=== PATIENT | female | born 1990 | race Caucasian/White ===

== ENCOUNTER 2017-10-12 09:39 | Emergency (ER) | payer OTHER ==
[2017-10-12 09:52] VITALS: BMI 23.8
--- NOTE | 2017-10-12 10:09 | PDOC ---
History of Present Illness - General History Source: Patient Exam Limitations: No Limitations - History of Present Illness Initial Comments: 10/12/17 12:49 The patient is a 26-year-old female, with no significant past medical history, who presents to the ED with vaginal bleeding that began this morning. The patient states that her last menstrual period lasted from 10/04/17- 10/08/17. On the patient developed lower back cramping and vaginal discharge. She became concerned after noting blood when wiping this morning since her period had already passed. On exam, she reports that she is nauseous. The patient denies any fever, chills, vomiting, or abdominal pain. She denies any history of cysts or fibroids. Allergies: NKDA Surgical Hx: No surgeries reported Social Hx: She denies any tobacco use or drug use. PERSONNEL CONSULTANT: Dr. De La Rosa <Carmen Medley - Last Filed: 10/12/17 12:49> <Kenyatta Blandon - Last Filed: 10/12/17 13:54> - General Chief Complaint: Vaginal Bleeding Stated Complaint: BLEEDING Time Seen by Provider: 10/12/17 10:09 Past History <Carmen Medley - Last Filed: 10/12/17 12:49> - Past Medical History Asthma: No Cancer: No Cardiac Disorders: No Diabetes: No HTN: No Seizures: No Thyroid Disease: No - Family Disease History Family Disease History: Diabetes: Father - Reproductive History (#): 1 Para: 0 - Immunization History Td Vaccination: Yes Immunization Up to Date: Yes - Suicide/Smoking/Psychosocial Hx Smoking Status: No Smoking History: Never smoked Years of Tobacco Use: 0 Number of Cigarettes Smoked Daily: 0 Cigars Per Day: 0 Hx Alcohol Use: No Drug/Substance Use Hx: No Substance Use Type: None Hx Substance Use Treatment: No <Kenyatta Blandon - Last Filed: 10/12/17 13:54> - Past Medical History Allergies/Adverse Reactions: Allergies Allergy/AdvReac Type Severity Reaction Status Date / Time No Known Allergies Allergy Verified 10/12/17 09:49 Home Medications: Ambulatory Orders NK [No Known Home Medication] 12/01/14 Review of Systems - Review of Systems Able to Perform ROS?: Yes Comments:: 10/12/17 12:49 GENERAL/CONSTITUTIONAL: No: fever, chills, weakness, loss of appetite. HEAD, EYES, EARS, NOSE AND THROAT: No: change in vision, ear pain, discharge, sore throat, throat swelling. CARDIOVASCULAR: No: chest pain, lightheadedness, palpitations, syncope RESPIRATORY: No: cough, shortness of breath, wheezing, hemoptysis, stridor. GASTROINTESTINAL: Yes: Nausea. No: vomiting, abdominal cramping, diarrhea, rectal bleeding, constipation. GENITOURINARY: Yes: vaginal bleeding, vaginal discharge. No: dysuria, hematuria , frequency, urgency, flank pain. MUSCULOSKELETAL: Yes: Lower back pain. No: neck pain, joint pain. SKIN AND BREASTS: No: lesions, pallor, rash or easy bruising. NEUROLOGIC: No: headache, vertigo, paresthesias, weakness ENDOCRINE: No: unexplained weight gain or loss HEMATOLOGIC/LYMPHATIC: No: anemia, easy bleeding, swelling nodes <Carmen Medley - Last Filed: 10/12/17 12:49> *Physical Exam - Vital Signs Last Vital Signs Temp Pulse Resp BP Pulse Ox 98.1 F 105 H 19 113/65 100 10/12/17 09:49 10/12/17 09:49 10/12/17 09:49 10/12/17 09:49 10/12/17 09:49 - Physical Exam Comments: 10/12/17 12:58 GENERAL: The patient is in no acute distress. HEAD: Normal with no signs of trauma. EYES: PERRLA, EOMI, sclera anicteric, conjunctiva clear. ENT: Ears normal, nares patent, oropharynx clear without exudates. Moist mucous membranes. NECK: Normal range of motion, supple without lymphadenopathy, JVD, or masses. LUNGS: Breath sounds equal, clear to auscultation bilaterally. No wheezes, and no crackles. HEART:Regular rate and rhythm, normal S1 and S2 without murmur, rub or gallop. ABDOMEN: (+)Minimal lower abdominal tenderness. Soft, normoactive bowel sounds. No guarding, no rebound. EXTREMITIES: Normal range of motion, no edema. No clubbing or cyanosis. No erythema, or tenderness. NEUROLOGICAL: Cranial nerves II through XII grossly intact. Normal speech. No focal neurological deficits. MUSCULOSKELETAL: Back non-tender to palpation, no CVA tenderness SKIN: Warm, Dry, normal turgor, no rashes or lesions noted. Pelvic Exam: No blood in vault No cervical masses or tenderness Physiological discharge noted <Carmen Medley - Last Filed: 10/12/17 12:49> - Vital Signs Last Vital Signs Temp Pulse Resp BP Pulse Ox 98.1 F 105 H 19 113/65 100 10/12/17 09:49 10/12/17 09:49 10/12/17 09:49 10/12/17 09:49 10/12/17 09:49 <Kenyatta Blandon - Last Filed: 10/12/17 13:54> ED Treatment Course - LABORATORY CBC & Chemistry Diagram: 10/12/17 11:10 10/12/17 11:10 - ADDITIONAL ORDERS Additional order review: Laboratory Results 10/12/17 11:10 Blood Type O NEGATIVE Antibody Screen Negative 10/12/17 11:10 RBC 4.85 MCV 86.5 MCHC 33.0 RDW 13.8 D MPV 7.2 L Neutrophils % 68.1 Lymphocytes % 21.2 Monocytes % 9.8 Eosinophils % 0.6 Basophils % 0.3 <Carmen Medley - Last Filed: 10/12/17 12:49> - LABORATORY CBC & Chemistry Diagram: 10/12/17 11:10 10/12/17 11:10 <Kenyatta Blandon - Last Filed: 10/12/17 13:54> Medical Decision Making - Medical Decision Making 10/12/17 12:14 Mr. Guan is a 26 yo female presenting to the emergency department with a complaint of spotting, lower abdominal pain. Patient states her last menstrual period was between October 04 and October 08. Beginning on October 09 she noted spotting, and lower abdominal pain. No fevers, chills. Patient has saturated. No abnormal discharge. On examination: Patient has mild lower abdominal tenderness to palpation No voluntary guarding, no rebound Normal external genitalia No bleeding noted, physiologic discharge noted, No CMT Will do labs Will do US Will re assess 10/12/17 12:19 Laboratory Tests 10/12/17 11:10 WBC 4.8 D Hgb 13.8 D Hct 42.0 Plt Count 231 Neutrophils % 68.1 Lymphocytes % 21.2 10/12/17 13:45 Laboratory Tests 10/12/17 11:10 BUN 10 Creatinine 0.6 Beta HCG, Quant < 1.0 10/12/17 13:46 Retroverted normal-appearing uterus, normal thickness of the endometrial stripe. Left ovary not visualized. Normal appearing right ovary with multiple small simple cyst/follicles present. Charge home. Clinical impression: Dysfunctional uterine bleeding, initial presentation Vital cramping, initial presentation <Kenyatta Blandon - Last Filed: 10/12/17 13:54> *DC/Admit/Observation/Transfer - Attestations Scribe Attestion: 10/12/17 13:03 Documentation prepared by Carmen Medley, acting as medical record assistant for Kenyatta Blandon MD. 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
[2017-10-12 11:24] LABS: BASO % 0.3 % (0-2.0); EOS % 0.6 % (0-4.5); HEMOGLOBIN 13.8 GM/dL (10.7-15.3); LYMPH % 21.2 % (8-40); MCH 28.5 pg (25.7-33.7); MEAN CELL VOLUME 86.5 fl (80-96); MEAN PLT VOLUME 7.2 fl (7.5-11.1); MONO % 9.8 % (3.8-10.2); NEUT % 68.1 % (42.8-82.8); PLATELET COUNT 231 K/MM3 (134-434); RBC 4.85 M/mm3 (3.60-5.2); RDW 13.8 % (11.6-15.6); WHITE BLOOD COUNT 4.8 K/mm3 (4.0-10.0)
[2017-10-12 13:16] LABS: ANION GAP 8 (8-16); BLOOD UREA NITROGEN 10 mg/dL (7-18); CALCIUM 9.2 mg/dL (8.5-10.1); CHLORIDE 103 mmol/L (98-107); CO2 30 mmol/L (21-32); GLUCOSE,RANDOM 90 mg/dL (74-106); POTASSIUM 3.7 mmol/L (3.5-5.1); SGPT/ALT 33 U/L (12-78); SODIUM 141 mmol/L (136-145)
[2017-10-12 13:18] LABS: BILIRUBIN,TOTAL 0.3 mg/dL (0.2-1.0); CREATININE 0.6 mg/dL (0.55-1.02); SGOT/AST 15 U/L (15-37); TOT PROT 7.5 g/dl (6.4-8.2)
[2017-10-12 13:22] LABS: ALK PHOS 76 U/L (45-117)
[2017-10-12 14:14] LABS: URINE APPEARANCE CLEAR; URINE BILIRUBIN NEGATIVE (NEGATIVE); URINE BLOOD NEGATIVE (NEGATIVE); URINE COLOR LTYELLOW; URINE GLUCOSE (UA) NEGATIVE (NEGATIVE); URINE KETONE NEGATIVE (NEGATIVE); URINE LEUK ESTERASE NEGATIVE (NEGATIVE); URINE NITRITE NEGATIVE (NEGATIVE); URINE PROTEIN NEGATIVE (NEGATIVE); URINE UROBILINOGEN NEGATIVE mg/dL (0.2-1.0)
[2017-10-12 14:23] VITALS: BP 128/75; PULSE 76; TEMP 97.9
== END 2017-10-12 14:23 | disposition home or self-care (01) ==
LOC: JER 09:39
DX: N93.8 Other specified abnormal uterine and vaginal bleeding (principal); R10.2 Pelvic and perineal pain
CPT/HCPCS: 36415; 76830-TC; 80053; 81003; 84702; 85025; 86850; 86900; 86901; 87070; 87086; 87205; 87491; 87591; 99282-25

== ENCOUNTER 2018-06-04 17:17 | Emergency (ER) | payer OTHER ==
[2018-06-04 17:22] VITALS: BP 100/76; PULSE 99; TEMP 98.6; BMI 26.5
[2018-06-04 18:08] LABS: URINE APPEARANCE CLEAR; URINE BILIRUBIN NEGATIVE (<2.0 mg/dL); URINE COLOR YELLOW; URINE GLUCOSE (UA) NEGATIVE (NEGATIVE); URINE KETONE NEGATIVE (NEGATIVE); URINE LEUK ESTERASE 3+ (NEGATIVE); URINE NITRITE NEGATIVE (NEGATIVE); URINE PROTEIN NEGATIVE (NEGATIVE); URINE UROBILINOGEN NEGATIVE mg/dL (0.2-1.0)
[2018-06-04 18:10] LABS: EPI CELLS RARE /HPF (FEW); URINE BACTERIA RARE /hpf (NONE SEEN); URINE MUCUS FEW
--- NOTE | 2018-06-04 19:08 | PDOC ---
History of Present Illness - General Chief Complaint: Vaginal Sxs Stated Complaint: UTI Time Seen by Provider: 06/04/18 18:11 History Source: Patient Exam Limitations: No Limitations - History of Present Illness Initial Comments: 06/04/18 20:[age] yo F w/ a h/o BV comes in c/o 2-3 weeks of profuse grayish- yellowish foul smelling vaginal discharge. She says that it smells like when she had BV. Denies being sexually active, last sexual encounter was in February. Denies suspicion for STD. Also denies burning/pain on urination, no frequency/ urgency/poor stream. (+)occasional abdominal cramping, no back pain, no fever/ chills, no nVD, no change in appetite, no decrease in urination. Past History - Past Medical History Allergies/Adverse Reactions: Allergies Allergy/AdvReac Type Severity Reaction Status Date / Time No Known Allergies Allergy Verified 06/04/18 17:19 Home Medications: Ambulatory Orders metroNIDAZOLE [Flagyl -] 500 mg PO BID 7 Days #14 tablet 06/04/18 Asthma: No Cancer: No Cardiac Disorders: No COPD: No Diabetes: No HTN: No Seizures: No Thyroid Disease: No - Family Disease History Family Disease History: Diabetes: Father - Reproductive History (#): 1 Para: 0 - Immunization History Td Vaccination: Yes Immunization Up to Date: Yes - Suicide/Smoking/Psychosocial Hx Smoking Status: No Smoking History: Never smoked Years of Tobacco Use: 0 Number of Cigarettes Smoked Daily: 0 Cigars Per Day: 0 Information on smoking cessation initiated: No Hx Alcohol Use: No Drug/Substance Use Hx: No Substance Use Type: None Hx Substance Use Treatment: No Review of Systems - Review of Systems Able to Perform ROS?: Yes Constitutional: No: Chills, Fever, Malaise, Night Sweats HEENTM: No: Eye Pain, Recent change in vision, Throat Pain Respiratory: No: Cough, Shortness of Breath Cardiac (ROS): No: Chest Pain, Palpitations, Chest Tightness ABD/GI: Yes: Abdominal cramping. No: Diarrhea, Nausea, Vomiting : Yes: Discharge. No: Burning, Dysuria, Hematuria Musculoskeletal: No: Back Pain Integumentary: No: Rash Neurological: No: Headache, Numbness, Dizziness Psychiatric: No: Change in Appetite Endocrine: No: Unexplained Weight Loss *Physical Exam - Vital Signs Last Vital Signs Temp Pulse Resp BP Pulse Ox 98.6 F 99 H 18 100/76 100 06/04/18 17:20 06/04/18 17:20 06/04/18 17:20 06/04/18 17:20 06/04/18 17:20 - Physical Exam General Appearance: Yes: Nourished. No: Apparent Distress HEENT: positive: NE, Normal Voice. negative: Pale Conjunctivae, Scleral Icterus (R), Scleral Icterus (L) Neck: positive: Supple, Tender midline. negative: Decreased range of motion Respiratory/Chest: positive: Lungs Clear, Normal Breath Sounds. negative: Respiratory Distress, Accessory Muscle Use Cardiovascular: positive: Regular Rhythm, Regular Rate Female Pelvic Exam: positive: normal external exam, cervical os closed, normal adnexa, normal size ovaries, discharge (copious grayish-yellowish discharge without CMT, no strawberry cervix, no adnexal tenderness/masses). negative: CMT Gastrointestinal/Abdominal: positive: Normal Bowel Sounds, Soft. negative: Tender Musculoskeletal: positive: Normal Inspection. negative: CVA Tenderness, Decreased Range of Motion Extremity: positive: Normal Capillary Refill, Normal Inspection, Normal Range of Motion. negative: Tender, Pedal Edema Integumentary: positive: Normal Color, Dry. negative: Jaundice, Rash Neurologic: positive: Fully Oriented, Alert, Normal Mood/Affect ED Treatment Course - ADDITIONAL ORDERS Additional order review: Laboratory Results 06/04/18 06/04/18 18:00 18:00 Urine Color Yellow Urine Appearance Clear Urine pH 6.0 Ur Specific [place] 1.026 Urine Protein Negative Urine Glucose (UA) Negative Urine Ketones Negative Urine Blood Negative Urine Nitrite Negative Urine Bilirubin Negative Urine Urobilinogen Negative Ur Leukocyte Esterase 3+ H Urine WBC (Auto) 2 Urine RBC (Auto) 2 Ur Epithelial Cells Rare Urine Bacteria Rare Urine Mucus Few Urine HCG, Qual Negative Medical Decision Making - Medical Decision Making 06/04/18 20:11 27 yo F w/ vaginal discharge, coulf be BV. I offered empiric treatment for STDs due to nature of discharge. Pt declines. WIll send STD testing. Urine with Leuks. WIll not treat because pt guaman snot have any urinary symptoms. Abdomen soft. NT. Will discharge with Flagyl and will have test results followed up OBGYN follow up Return for worsening/concerning symptoms *DC/Admit/Observation/Transfer Diagnosis at time of Disposition: Vaginal discharge - Discharge Dispostion Disposition: HOME Condition at time of disposition: Stable Decision to Admit order: No - Prescriptions Prescriptions: metroNIDAZOLE [Flagyl -] 500 mg PO BID 7 Days #14 tablet - Referrals Referrals: Mukesh López [Primary Care Provider] - - Patient Instructions - Post Discharge Activity
== END 2018-06-04 19:32 | disposition home or self-care (01) ==
LOC: JERFT 17:17
DX: N89.8 Other specified noninflammatory disorders of vagina (principal)
CPT/HCPCS: 36415; 81003; 81015; 84703; 87070; 87077; 87086; 87205; 87491; 87591; 87661; 99281-25

== ENCOUNTER 2018-06-20 21:12 | Emergency (ER) | payer OTHER ==
[2018-06-20 21:17] VITALS: BP 116/75; PULSE 88; TEMP 98.7; BMI 26.3
--- NOTE | 2018-06-20 21:36 | PDOC ---
History of Present Illness - General Chief Complaint: Ear Problem Stated Complaint: EAR PROBLEM Time Seen by Provider: 06/20/18 21:30 - History of Present Illness Initial Comments: 06/20/18 21:33 27-year-old female with for years of right ear congestion comes to ER for further evaluation and treatment. She has no associated symptoms. Past History - Past Medical History Allergies/Adverse Reactions: Allergies Allergy/AdvReac Type Severity Reaction Status Date / Time No Known Allergies Allergy Verified 06/20/18 21:18 Home Medications: Ambulatory Orders Cetirizine HCl/Pseudoephedrine [Zyrtec-D Tablet] 1 each PO DAILY #30 tab.er.12h 06/20/18 Asthma: No Cancer: No Cardiac Disorders: No COPD: No Diabetes: No HTN: No Seizures: No Thyroid Disease: No - Family Disease History Family Disease History: Diabetes: Father - Reproductive History (#): 1 Para: 0 - Immunization History Td Vaccination: Yes Immunization Up to Date: Yes - Suicide/Smoking/Psychosocial Hx Smoking Status: No Smoking History: Never smoked Years of Tobacco Use: 0 Number of Cigarettes Smoked Daily: 0 Cigars Per Day: 0 Hx Alcohol Use: No Drug/Substance Use Hx: No Substance Use Type: None Hx Substance Use Treatment: No Review of Systems - Review of Systems HEENTM: Yes: See HPI *Physical Exam - Vital Signs Last Vital Signs Temp Pulse Resp BP Pulse Ox 98.7 F 88 18 116/75 100 06/20/18 21:13 06/20/18 21:13 06/20/18 21:13 06/20/18 21:13 06/20/18 21:13 - Physical Exam Comments: 06/20/18 21:34 HEAD: NC/AT EYES: Conjuntiva clear Ears: Canals and TM's normal NOSE: No d/c THROAT: Moist mucous membrances, oral pharanx clear, uvula midline NECK: Supple without adenopathy CARDIAC: S1 S2 LUNGS: CTA Full and Equal breath sounds ABDOMEN: Soft NT ND MS: Full ROM in all joints without edema NEUROLOGIC: No gross sensory or motor deficits, NVID SKIN: Normal color and temperature no lesions or rashes Medical Decision Making - Medical Decision Making 06/20/18 21:34 Benign examination in this healthy 27-year-old I will give her an antihistamine with decongestant. She states there is no chance of her being she will follow-up with ENT. *DC/Admit/Observation/Transfer Diagnosis at time of Disposition: Ear pain, right - Discharge Dispostion Disposition: HOME Condition at time of disposition: Stable Decision to Admit order: No - Referrals Referrals: Mukesh López [Primary Care Provider] - Fredrick Hoffman MD [Staff Physician] - - Patient Instructions Additional Instructions: Please take the medication as directed. Return to the emergency room should symptoms worsen or go unresolved and follow-up with ENT doctor in one to 2 days for further evaluation and treatment options. - Post Discharge Activity
== END 2018-06-20 21:37 | disposition home or self-care (01) ==
LOC: JERFT 21:12
DX: H92.01 Otalgia, right ear (principal)
CPT/HCPCS: 99281-25

== ENCOUNTER 2018-07-11 15:42 | Emergency (ER) | payer OTHER ==
[2018-07-11 15:59] VITALS: BP 109/69; PULSE 86; TEMP 98.4; BMI 26.7
--- NOTE | 2018-07-11 15:59 | PDOC ---
Rapid Medical Evaluation Chief Complaint: Pain, Acute Time Seen by Provider: 07/11/18 15:54 Medical Evaluation: Allergies Allergy/AdvReac Type Severity Reaction Status Date / Time No Known Allergies Allergy Verified 06/20/18 21:18 07/11/18 15:55 27 year old female with pelvic pain b/l since this afternoon/ no period x 4 months. patient has irregular menstrual perios. denies STD exposure/ new partner./ patient reports clear white vaginal discharge. PE'; patient alert ox3. A: pelvic pain P: UA, UCX, urine Discharge Disposition - Diagnosis Pelvic pain - Referrals - Patient Instructions - Post Discharge Activity
--- NOTE | 2018-07-11 16:42 | PDOC ---
History of Present Illness - General Chief Complaint: Pain, Acute Stated Complaint: PAIN Time Seen by Provider: 07/11/18 15:54 History Source: Patient Exam Limitations: Clinical Condition - History of Present Illness Initial Comments: 07/11/18 16:37 Patient with no significant past medication present with complaint of 4 day history of smelly vaginal discharge. Patient also reports cramping lower pelvic pain which she thinks could be due to her menstrual period which just started an hour ago. Patient also reported urinary frequency, dysuria and urgency. Patient denies fever, chills, back pains, nausea or vomiting. Patient denies any other symptoms Timing/Duration: other (4 days) Past History - Past Medical History Allergies/Adverse Reactions: Allergies Allergy/AdvReac Type Severity Reaction Status Date / Time No Known Allergies Allergy Verified 07/11/18 15:56 Home Medications: Ambulatory Orders Ciprofloxacin HCl [Cipro] 500 mg PO BID 5 Days #10 tablet 07/11/18 Fluconazole [Diflucan] 150 mg PO ONCE #1 tablet 07/11/18 metroNIDAZOLE [Flagyl -] 500 mg PO DAILY #14 tablet 07/11/18 Asthma: No Cancer: No Cardiac Disorders: No COPD: No Diabetes: No HTN: No Seizures: No Thyroid Disease: No - Family Disease History Family Disease History: Diabetes: Father - Reproductive History (#): 1 Para: 0 - Immunization History Td Vaccination: Yes Immunization Up to Date: Yes - Suicide/Smoking/Psychosocial Hx Smoking Status: No Smoking History: Never smoked Years of Tobacco Use: 0 Number of Cigarettes Smoked Daily: 0 Cigars Per Day: 0 Hx Alcohol Use: No Drug/Substance Use Hx: No Substance Use Type: None Hx Substance Use Treatment: No Review of Systems - Review of Systems Able to Perform ROS?: Yes Is the patient limited Swedish proficient: No Constitutional: No: Chills, Fever Respiratory: No: Symptoms reported Cardiac (ROS): No: Symptoms Reported ABD/GI: Yes: Symptoms Reported, See HPI, Abdominal cramping (cramping lower abdominal). No: Abdominal Distended, Abd. Pain w/ defecation, Blood Streaked Bowels, Constipated, Diarrhea, Difficulty Swallowing, Nausea, Poor Appetite, Poor Fluid Intake, Rectal Bleeding, Vomiting, Indigestion, Tarry Stools, Other : Yes: Dysuria, Discharge, Frequency, Urgency. No: Burning, Flank Pain, Hematuria, Incontinence, Pain Musculoskeletal: No: Back Pain, Muscle Pain All Other Systems: Reviewed and Negative *Physical Exam - Vital Signs Last Vital Signs Temp Pulse Resp BP Pulse Ox 98.4 F 86 16 109/69 99 07/11/18 15:56 07/11/18 15:56 07/11/18 15:56 07/11/18 15:56 07/11/18 15:56 - Physical Exam Comments: 07/11/18 16:39 GENERAL: Well developed, well nourished. Awake and alert. No acute distress. CARDIOVASCULAR: Regular rate and rhythm. No murmurs, rubs, or gallops. Distal pulses are 2+ and symmetric. PULMONARY: No evidence of respiratory distress. Lungs clear to auscultation bilaterally. No wheezing, rales or rhonchi. ABDOMINAL: Soft. Non-tender. Non-distended. No rebound or guarding. No organomegaly. Normoactive bowel sounds. MUSCULOSKELETAL Normal range of motion at all joints. No bony deformities or tenderness. No CVA tenderness. : Declined due to mestrual period SKIN: Warm and dry. Normal capillary refill. No rashes. No jaundice. NEUROLOGICAL: Alert, awake, appropriate. PSYCHIATRIC: Cooperative. Good eye contact. Appropriate mood and affect. General Appearance: Yes: Nourished, Appropriately Dressed. No: Apparent Distress Medical Decision Making - Medical Decision Making 07/11/18 16:40 Patient with no significant past medication present with complaint of 4 days history of vaginal discharge, urinary frequency and dysuria. Patient declined vaginal exam Jicha menstrual period just started. UA and urine culture sent. Urine GC/ chlamydia labs sent. Patient will be treated empirically for bacterial vaginosis, vaginal yeast infection and UTI pending labs. Plan discussed with patient and patient agreed was plan. Patient is stable for discharge with DESIGN CONSULTANT follow-up *DC/Admit/Observation/Transfer Diagnosis at time of Disposition: Pelvic pain, Dysuria Vaginitis Qualifiers: Chronicity: acute Qualified Code(s): N76.0 - Acute vaginitis - Discharge Dispostion Disposition: HOME Condition at time of disposition: Stable Decision to Admit order: No - Prescriptions Prescriptions: Ciprofloxacin HCl [Cipro] 500 mg PO BID 5 Days #10 tablet Fluconazole [Diflucan] 150 mg PO ONCE #1 tablet metroNIDAZOLE [Flagyl -] 500 mg PO DAILY #14 tablet - Referrals Referrals: Mukesh López [Primary Care Provider] - - Patient Instructions Additional Instructions: Take medications as prescribed. Take Diflucan antifungal by mouth after cipro and flagyl antibiotics treatment. you will be contacted with urine culture results. - Post Discharge Activity
[2018-07-11 16:46] LABS: HCG,QUALITATIVE URINE Negative
[2018-07-11 16:58] LABS: URINE APPEARANCE SLCLOUDY; URINE BILIRUBIN NEGATIVE (<2.0 mg/dL); URINE COLOR YELLOW; URINE GLUCOSE (UA) NEGATIVE (NEGATIVE); URINE KETONE NEGATIVE (NEGATIVE); URINE LEUK ESTERASE 3+ (NEGATIVE); URINE NITRITE NEGATIVE (NEGATIVE); URINE PROTEIN NEGATIVE (NEGATIVE); URINE UROBILINOGEN NEGATIVE mg/dL (0.2-1.0)
[2018-07-11 17:10] LABS: EPI CELLS MODERATE /HPF (FEW); URINE BACTERIA RARE /hpf (NONE SEEN); URINE MUCUS RARE
== END 2018-07-11 16:49 | disposition home or self-care (01) ==
LOC: JERFT 15:42
DX: N76.0 Acute vaginitis (principal); B96.89 Other specified bacterial agents as the cause of diseases classified elsewhere; B37.3 Candidiasis of vulva and vagina
CPT/HCPCS: 36415; 81003; 81015; 84703; 87077; 87086; 87491; 87591; 99281-25

== ENCOUNTER 2018-08-26 00:20 | Emergency (ER) | payer OTHER ==
[2018-08-26 02:10] VITALS: BP 113/70; PULSE 78; TEMP 97.9; BMI 27.2
--- NOTE | 2018-08-26 02:26 | PDOC ---
Attending Attestation - Resident Resident Name: Ghassan Dowling - ED Attending Attestation I have performed the following: I have examined & evaluated the patient, The case was reviewed & discussed with the resident, I agree w/resident's findings & plan, Exceptions are as noted - HPI HPI: 08/26/18 05:55 27F no pmh here with episodic dizziness for the past several months. Episodes dependant on movement and position. Has been evaluated by ENT for this issue w/ o any worrisome finding per patient. - Physicial Exam PE: 08/26/18 05:56 Agree with exam as documented by resident - Medical Decision Making 08/26/18 05:57 Pt c/o dizziness, no features worrisome for central cause, inconsistent with pre -syncope, consider bppv trial meclizine f/u with pcp8
[2018-08-26] MEDS ORDERED: MECLIZINE HCL 25 MG TABLET (FP) PO ONE (02:28)
--- NOTE | 2018-08-26 02:34 | PDOC ---
History of Present Illness - General Chief Complaint: Shortness of Breath Stated Complaint: DIZZINESS SOB EAR PROBLEM Time Seen by Provider: 08/26/18 02:14 History Source: Patient Exam Limitations: No Limitations - History of Present Illness Initial Comments: 08/26/18 02:30 Patient is a 27F with no significant medical history complaining of dizziness for the past two days. Patient states that she has been having issues with dizziness for the past several months and was evaluated by an ENT doctor who told her she was fine. Patient states that she has an appointment scheduled for Wednesday. Patient states that her episodes of dizziness are severe and worsened when she moves. She states that she has a sensation of a "whoosh" in her right ear. She has also had tinnitus in the past. Denies fevers, chills, nausea, vomiting, ear pain. Patient states that she had an episode of shortness of breath earlier today, since resolved. Denies any focal neuro deficit such as arm /leg weakness and facial droop. Past History - Past Medical History Allergies/Adverse Reactions: Allergies Allergy/AdvReac Type Severity Reaction Status Date / Time No Known Allergies Allergy Verified 08/26/18 01:58 Home Medications: Ambulatory Orders Ciprofloxacin HCl [Cipro] 500 mg PO BID 5 Days #10 tablet 07/11/18 Fluconazole [Diflucan] 150 mg PO ONCE #1 tablet 07/11/18 metroNIDAZOLE [Flagyl -] 500 mg PO DAILY #14 tablet 07/11/18 Meclizine HCl [Antivert -] 25 mg PO TID #21 tablet 08/26/18 Asthma: No Cancer: No Cardiac Disorders: No COPD: No Diabetes: No HTN: No Seizures: No Thyroid Disease: No - Family Disease History Family Disease History: Diabetes: Father - Reproductive History (#): 1 Para: 0 - Immunization History Td Vaccination: Yes Immunization Up to Date: Yes - Suicide/Smoking/Psychosocial Hx Smoking Status: No Smoking History: Never smoked Years of Tobacco Use: 0 Have you smoked in the past 12 months: No Number of Cigarettes Smoked Daily: 0 Cigars Per Day: 0 Information on smoking cessation initiated: No Hx Alcohol Use: No Drug/Substance Use Hx: No Substance Use Type: None Hx Substance Use Treatment: No Review of Systems - Review of Systems Comments:: 08/26/18 02:33 GENERAL/CONSTITUTIONAL: No fever or chills. No weakness. HEAD, EYES, EARS, NOSE AND THROAT: No change in vision. No ear pain or discharge. No sore throat. CARDIOVASCULAR: No chest pain or shortness of breath RESPIRATORY: No cough, wheezing, or hemoptysis. GASTROINTESTINAL: No nausea, vomiting, diarrhea or constipation. GENITOURINARY: No dysuria, frequency, or change in urination. MUSCULOSKELETAL: No joint or muscle swelling or pain. No neck or back pain. SKIN: No rash NEUROLOGIC: No headache, +vertigo, no loss of consciousness, or change in strength/sensation. ENDOCRINE: No increased thirst. No abnormal weight change HEMATOLOGIC/LYMPHATIC: No anemia, easy bleeding, or history of blood clots. ALLERGIC/IMMUNOLOGIC: No hives or skin allergy. *Physical Exam - Vital Signs Last Vital Signs Temp Pulse Resp BP Pulse Ox 97.9 F 78 20 113/70 99 08/26/18 00:20 08/26/18 00:20 08/26/18 00:20 08/26/18 00:20 08/26/18 00:20 - Physical Exam Comments: 08/26/18 02:33 GENERAL: Awake, alert, and fully oriented, in no acute distress HEAD: No signs of trauma, normocephalic, atraumatic EYES: PERRLA, EOMI, sclera anicteric, conjunctiva clear ENT: Auricles normal inspection, hearing grossly normal, nares patent, oropharynx clear without exudates. Moist mucosa. Clear TMs. NECK: Normal ROM, supple, no lymphadenopathy, JVD, or masses LUNGS: No distress, speaks full sentences, clear to auscultation bilaterally HEART: Regular rate and rhythm, normal S1 and S2, no murmurs, rubs or gallops, peripheral pulses normal and equal bilaterally. ABDOMEN: Soft, nontender, normoactive bowel sounds. No guarding, no rebound. No masses EXTREMITIES: Normal inspection, Normal range of motion, no edema. No clubbing or cyanosis. NEUROLOGICAL: Cranial nerves II through XII grossly intact. Normal speech, normal gait, no focal sensorimotor deficits SKIN: Warm, Dry, normal turgor, no rashes or lesions noted. Moderate Sedation - Procedure Monitoring Vital Signs: Procedure Monitoring Vital Signs Temperature 97.9 F 08/26/18 00:20 Pulse Rate 78 08/26/18 00:20 Respiratory Rate 20 08/26/18 00:20 Blood Pressure 113/70 08/26/18 00:20 O2 Sat by Pulse Oximetry (%) 99 08/26/18 00:20 Medical Decision Making - Medical Decision Making 08/26/18 02:34 Patient is 27F here today with vertigo. No red flags for stroke, acs, arrhythmia , mass, dissection. Patient has appropriate ENT follow up. Will discharge with meclizine, believe BPPV is most likely diagnosis. *DC/Admit/Observation/Transfer Diagnosis at time of Disposition: Vertigo - Discharge Dispostion Disposition: HOME Condition at time of disposition: Good Decision to Admit order: No - Prescriptions Prescriptions: Meclizine HCl [Antivert -] 25 mg PO TID #21 tablet - Referrals Referrals: Mukesh López [Primary Care Provider] - - Patient Instructions Printed Discharge Instructions: DI for Vertigo Additional Instructions: Please follow up with your ENT doctor as scheduled on Wednesday. Please return if you have any new, worsening or concerning symptoms, especially fever, facial droop, or arm/leg weakness. - Post Discharge Activity
[2018-08-26] MEDS ORDERED: MECLIZINE HCL 25 MG TABLET (FP) ONE (02:44)
== END 2018-08-26 02:56 | disposition home or self-care (01) ==
LOC: JER 00:20
DX: H81.11 Benign paroxysmal vertigo, right ear (principal)
CPT/HCPCS: 99281-25

== ENCOUNTER 2019-01-08 19:53 | Emergency (ER) | payer OTHER ==
[2019-01-08 20:11] VITALS: BP 110/56; PULSE 75; TEMP 98; BMI 28.7
--- NOTE | 2019-01-08 20:18 | PDOC ---
History of Present Illness - General Chief Complaint: Vaginal Bleeding Stated Complaint: VAGINAL BLEEDING 4 WKS Time Seen by Provider: 01/08/19 20:17 - History of Present Illness Initial Comments: 01/08/19 20:18 Ms. Santiago is a 28 yo female w/ pmh of PCOS who presents for evaluation of 4 week history of vaginal bleeding. Patient reports she went 4 months w/out having her period and then started spotting December 10. Bleeding increased to normal period levels and has not abated over this time period. Patient was evaluated on by FIELD MARKETING DIRECTOR who believes this may be related to her PCOS however elected to hold on medication until an ultrasound could be done. Patient presents today as she has started to feel weak today as well. Patient also reports she has had irregular periods her whole life but has never missed more than a month before. Periods normally last only 6 days. The patient denies chest pain, shortness of breath, headache and dizziness. Denies fever, chills, nausea, vomit, diarrhea and constipation. Denies dysuria, frequency, urgency and hematuria. Past History - Past Medical History Allergies/Adverse Reactions: Allergies Allergy/AdvReac Type Severity Reaction Status Date / Time No Known Allergies Allergy Verified 01/08/19 20:08 Home Medications: Ambulatory Orders Ciprofloxacin HCl [Cipro] 500 mg PO BID 5 Days #10 tablet 07/11/18 Fluconazole [Diflucan] 150 mg PO ONCE #1 tablet 07/11/18 metroNIDAZOLE [Flagyl -] 500 mg PO DAILY #14 tablet 07/11/18 Meclizine HCl [Antivert -] 25 mg PO TID #21 tablet 08/26/18 Asthma: No Cancer: No Cardiac Disorders: No COPD: No Diabetes: No HTN: No Seizures: No Thyroid Disease: No - Family Disease History Family Disease History: Diabetes: Father - Reproductive History (#): 1 Para: 0 - Immunization History Td Vaccination: Yes Immunization Up to Date: Yes - Suicide/Smoking/Psychosocial Hx Smoking Status: No Smoking History: Never smoked Years of Tobacco Use: 0 Have you smoked in the past 12 months: No Number of Cigarettes Smoked Daily: 0 Cigars Per Day: 0 Hx Alcohol Use: No Drug/Substance Use Hx: No Substance Use Type: None Hx Substance Use Treatment: No Review of Systems - Review of Systems Comments:: 05/19/19 20:18 GENERAL/CONSTITUTIONAL: +Generalized weakness x1 day. No fever or chills. HEAD, EYES, EARS, NOSE AND THROAT: No change in vision. No ear pain or discharge. No sore throat. CARDIOVASCULAR: No chest pain or shortness of breath RESPIRATORY: No cough, wheezing, or hemoptysis. GASTROINTESTINAL: No nausea, vomiting, diarrhea or constipation. GENITOURINARY: +Bleeding as described. No dysuria, frequency, or change in urination. MUSCULOSKELETAL: No joint or muscle swelling or pain. No neck or back pain. SKIN: No rash NEUROLOGIC: No headache, vertigo, loss of consciousness, or change in strength/ sensation. ENDOCRINE: No increased thirst. No abnormal weight change HEMATOLOGIC/LYMPHATIC: No anemia, easy bleeding, or history of blood clots. ALLERGIC/IMMUNOLOGIC: No hives or skin allergy. *Physical Exam - Vital Signs Last Vital Signs Temp Pulse Resp BP Pulse Ox 98.0 F 75 18 110/56 L 100 01/08/19 20:08 01/08/19 20:08 01/08/19 20:08 01/08/19 20:08 01/08/19 20:08 - Physical Exam Comments: 01/08/19 20:18 GENERAL: Awake, alert, and fully oriented, in no acute distress HEAD: No signs of trauma, normocephalic, atraumatic EYES: PERRLA, EOMI, sclera anicteric, conjunctiva clear ENT: Auricles normal inspection, hearing grossly normal, nares patent, oropharynx clear without exudates. Moist mucosa NECK: Normal ROM, supple, no lymphadenopathy, JVD, or masses LUNGS: No distress, speaks full sentences, clear to auscultation bilaterally HEART: Regular rate and rhythm, normal S1 and S2, no murmurs, rubs or gallops, peripheral pulses normal and equal bilaterally. ABDOMEN: Soft, nontender, normoactive bowel sounds. No guarding, no rebound. No masses EXTREMITIES: Normal inspection, Normal range of motion, no edema. No clubbing or cyanosis. NEUROLOGICAL: Cranial nerves II through XII grossly intact. Normal speech, normal gait, no focal sensorimotor deficits SKIN: Warm, Dry, normal turgor, no rashes or lesions noted. VAGINAL: +Moderate blood with some clots noted in vaginal vault. Os open. No CMT , no adnexal tenderness. ED Treatment Course - LABORATORY CBC & Chemistry Diagram: 01/08/19 20:45 01/08/19 21:45 Medical Decision Making - Medical Decision Making 01/08/19 22:06 Ms. Santiago is a 28 yo female w/ pmh as described who presents for evaluation of vaginal bleeding. Patient evaluated with labs as below as well as TVUS. Discussed case with pt's FIELD MARKETING DIRECTOR who suggests hydration and discharge for further outpatient evaluation assuming no concerning findings on TVUS. Patient refused IV hydration at this time however can tolerate oral without difficulty. Exam significant only for moderate blood in vaginal vault with open Os c/w menstruation. Patient currently pending US at this time. 01/08/19 22:58 US significant for minimal fluid in L adnexal region and 1.3cm endometrial stripe. No concerning findings. Discharging to home for further outpatient evaluation. *DC/Admit/Observation/Transfer Diagnosis at time of Disposition: Vaginal bleeding - Discharge Dispostion Disposition: HOME - Referrals Referrals: Dusty Cole MD [Primary Care Provider] - Nicky Martin MD [Staff Physician] - - Patient Instructions Printed Discharge Instructions: DI for Vaginal Bleeding Additional Instructions: You were evaluated today in the ER for your symptoms. We performed laboratory evaluation as well as transvaginal US without concerning findings. Your labs were all non-concerning and we do not believe anything emergent is occuring at this time. We discussed your case with your FIELD MARKETING DIRECTOR and believe you are safe for further outpatient evaluation. Please follow-up with FIELD MARKETING DIRECTOR tomorrow for further care. Return to ER if any fever, chills, weakness, or other concerning symptoms. - Post Discharge Activity
[2019-01-08 20:53] LABS: BASO % 0.3 % (0-2.0); EOS % 1.1 % (0-4.5); HEMATOCRIT 37.8 % (32.4-45.2); HEMOGLOBIN 12.5 GM/dL (10.7-15.3); LYMPH % 20.3 % (8-40); MCH 28.6 pg (25.7-33.7); MEAN CELL VOLUME 86.9 fl (80-96); MEAN PLT VOLUME 7.4 fl (7.5-11.1); MONO % 8.6 % (3.8-10.2); NEUT % 69.7 % (42.8-82.8); PLATELET COUNT 277 K/MM3 (134-434); RBC 4.36 M/mm3 (3.60-5.2); RDW 14.4 % (11.6-15.6); WHITE BLOOD COUNT 7.8 K/mm3 (4.0-10.0)
[2019-01-08 21:18] LABS: PH,URINE 7.5 (5.0-8.0); URINE APPEARANCE CLEAR; URINE BILIRUBIN NEGATIVE (NEGATIVE); URINE COLOR YELLOW; URINE GLUCOSE (UA) NEGATIVE (NEGATIVE); URINE KETONE NEGATIVE (NEGATIVE); URINE LEUK ESTERASE NEGATIVE (NEGATIVE); URINE NITRITE NEGATIVE (NEGATIVE); URINE PROTEIN NEGATIVE (NEGATIVE); URINE UROBILINOGEN 0.2 mg/dL (0.2-1.0)
[2019-01-08 21:19] LABS: HCG,QUALITATIVE URINE Negative
[2019-01-08 21:50] LABS: URINE BACTERIA FEW /hpf (NEGATIVE); URINE WBC 0 /hpf (0-5)
[2019-01-08] MEDS ORDERED: SODIUM CHLORIDE 1,000 ML IV STA (22:04)
[2019-01-08 22:52] LABS: ALBUMIN 3.9 g/dl (3.4-5.0); BILIRUBIN,TOTAL 0.3 mg/dL (0.2-1); CALCIUM 8.1 mg/dL (8.5-10.1); CREATININE 0.6 mg/dL (0.55-1.3); TOT PROT 7.1 g/dl (6.4-8.2)
--- NOTE | 2019-01-09 00:14 | PDOC ---
Documentation entered by Soledad Bolanos SCRIBE, acting as scribe for Susanne Rubi MD. Susanne Rubi MD: This documentation has been prepared by the Cici nolasco Daisy, SCRIBE, under my direction and personally reviewed by me in its entirety. I confirm that the documentation accurately reflects all work, treatment, procedures, and medical decision making performed by me. Attending Attestation - Resident Resident Name: Nathan Henson - ED Attending Attestation I have performed the following: I have examined & evaluated the patient, The case was reviewed & discussed with the resident, I agree w/resident's findings & plan - HPI HPI: 01/08/19 20:50 The patient is a 28 YOF with a PMH of PCOS who presents to the ER for evaluation of vaginal bleeding for the past 4 weeks. She reports the amount of vaginal bleeding is like the amount she has during her periods and admits to passing clots. She saw her DIRECTOR OF COMMUNITY SERVICES 3 days ago and was not prescribed any meds until she got an ultrasound done. Not currently on any oral contraceptives. currently take a vitamin for hormonal balance, but no prescription meds. does feel fatigued and week, no sob no pallor. Denies N/V/D/C, fever, chills, cp or sob. Allergies: NKDA 01/09/19 00:09 - Physicial Exam PE: 01/09/19 00:11 awake alert lungs clear bilaterally heart rrr no mrg abd soft nt nd ext wwp. nuero alert oriented x 3. - Medical Decision Making 01/09/19 00:12 differential anemia, dysfunctional anovulatory bleeding, hypothyroid, and related bleeding. fibroids. plan tvus labs r/o anemia pt labs normal. tvus with mildly thickened uterine stripe. small ff left adnexa. no fibroids, plan d/w with beauty school instructor. Elio , will see pt this week . dc home.
== END 2019-01-08 23:44 | disposition home or self-care (01) ==
LOC: JER 19:53
DX: N93.8 Other specified abnormal uterine and vaginal bleeding (principal); E28.2 Polycystic ovarian syndrome
CPT/HCPCS: 36415; 76830-TC; 80053; 81003; 84443; 84703; 85025; 87086; 99283-25